=== PATIENT | male | born 1980 | race Caucasian/White ===

== ENCOUNTER 2017-01-03 08:00 | Observation (INO) | payer OTHER ==
[2017-01-03] VITALS (11 sets, daily range): BP systolic 115–176; BP diastolic 62–104; PULSE 65–87; RESP 16–18; TEMP 97.7–98.4; O2SAT 96–99
[~2017-01-03] VITALS: Ht 170.2 cm; Wt 72.5 kg
[2017-01-03] MEDS ORDERED: SODIUM CHLOR 0.9% 1000 ML INJ 1,000 ML IV SCH (08:12)
[2017-01-03] MEDS ORDERED: SODIUM CHLORIDE 0.9% FLUSH 10 ML FLUSH IV FLUSH PRN ×2 (08:15→11:00)
[2017-01-03] MEDS ORDERED: FAMOTIDINE 20 MG/2 ML VIAL IV PUSH ONE (08:15)
[2017-01-03] MEDS ORDERED: diphenhydrAMINE HCL 50 MG/ML VIAL IVP ONE (08:15)
[2017-01-03] MEDS ORDERED: methylPREDNISolone SOD SUCC 125 MG/2 ML VIAL IV PUSH ONE (08:15)
[2017-01-03 08:36] LABS: AUTOMATED NEUTROPHIL # 4.8 TH/MM3 (1.8-7.7); BASOPHIL % 0.2 % (0.0-2.0); EOSINOPHIL # 0.8 TH/MM3 (0-0.4); EOSINOPHIL % 7.3 % (0.0-4.0); HEMATOCRIT 43.3 % (39.0-51.0); HEMO FLAGS DIFF FINAL; LYMPH % 35.2 % (9.0-44.0); LYMPHOCYTE # 3.7 TH/MM3 (1.0-4.8); MEAN CORPUSCULAR HEMOGLOBIN 30.9 PG (27.0-34.0); MEAN CORPUSCULAR HGB CONC 34.7 % (32.0-36.0); MONO % 11.3 % (0.0-8.0); PLATELET COUNT 255 TH/MM3 (150-450); RED BLOOD COUNT 4.86 MIL/MM3 (4.50-5.90); RED CELL DISTRIBUTION WIDTH 12.8 % (11.6-17.2); WHITE BLOOD COUNT 10.5 TH/MM3 (4.0-11.0)
[2017-01-03 08:51] LABS: BICARBONATE 27.4 MEQ/L (21.0-32.0)
[2017-01-03] MEDS ORDERED: PRED20 PO (09:09)
--- NOTE | 2017-01-03 09:09 | PD ---
HPI Chief Complaint: Allergic/Adverse Reaction Time Seen by Provider: 08:11 Travel History International Travel<30 days: No Contact w/Intl Traveler<30days: No Traveled to known affect area: No History of Present Illness HPI 36-year-old male states that this morning he suddenly developed itchiness all over with swelling to his hands and feet that felt like an allergic reaction. He denies any new exposure or bite that he can think of. This occurred shortly prior to arrival. He did not take any medications to help with the itching prior to arrival. He denies any other concurrent complaints. He denies any specific modifying factors. [facility] Past Medical History Inguinal Hernia: Yes Influenza Vaccination: No Past Surgical History Other Surgery: Yes (INGUINAL HERNIA SURGERY) Social History Alcohol Use: No Tobacco Use: No Substance Use: No (COCAINE 1+ YEAR AGO) Allergies-Medications (Allergen,Severity, Reaction): Coded Allergies: No Known Allergies (Unverified , 01/03/17) Reported Meds & Prescriptions Reported Meds & Active Scripts Active Review of Systems Except as stated in HPI: all other systems reviewed are Neg Physical Exam Narrative GENERAL: Well-nourished, well-developed patient. SKIN: Warm and dry. There is a what appears to be a small insect bite noted to the back of patient's neck that shows a little bit of surrounding erythema without induration, hive-like reaction noted to lower arms and legs HEAD: Normocephalic and atraumatic. EYES: No injection or drainage. ENT: No nasal drainage noted. No uvula swelling NECK: Supple, trachea midline. CARDIOVASCULAR: Regular rate and rhythm RESPIRATORY: Breath sounds equal bilaterally. No accessory muscle use. GASTROINTESTINAL: Abdomen soft, non-tender, nondistended. NEUROLOGICAL: Awake and alert. Motor and sensory grossly within normal limits. Normal speech. Data Data Last Documented VS Vital Signs Date Time Temp Pulse Resp B/P (MAP) Pulse Ox O2 Delivery O2 Flow Rate FiO2 01/03/17 10:54 73 16 123/71 (88) 97 Room Air 01/03/17 08:01 98.4 Orders Orders Basic Metabolic Panel (Bmp) (01/03/17 08:12) Complete Blood Count With Diff (01/03/17 08:12) Ecg Monitoring (01/03/17 08:12) Iv Access Insert/Monitor (01/03/17 08:12) Oximetry (01/03/17 08:12) Diphenhydramine Inj (Benadryl Inj) (01/03/17 08:15) Methylprednisolone So Succ Inj (Solumedr (01/03/17 08:15) Famotidine Inj (Pepcid Inj) (01/03/17 08:15) Sodium Chlor 0.9% 1000 Ml Inj (Ns 1000 M (01/03/17 08:12) Sodium Chloride 0.9% Flush (Ns Flush) (01/03/17 08:15) Epinephrine (1:1000) Inj (Adrenalin (1:1 (01/03/17 09:15) Admit Order (Ed Use Only) (01/03/17 10:52) Labs Laboratory Tests Test 01/03/17 08:20 White Blood Count 10.5 TH/MM3 Red Blood Count 4.86 MIL/MM3 Hemoglobin 15.0 GM/DL Hematocrit 43.3 % Mean Corpuscular Volume 89.0 FL Mean Corpuscular Hemoglobin 30.9 PG Mean Corpuscular Hemoglobin Concent 34.7 % Red Cell Distribution Width 12.8 % Platelet Count 255 TH/MM3 Mean Platelet Volume 8.8 FL Neutrophils (%) (Auto) 46.0 % Lymphocytes (%) (Auto) 35.2 % Monocytes (%) (Auto) 11.3 % Eosinophils (%) (Auto) 7.3 % Basophils (%) (Auto) 0.2 % Neutrophils # (Auto) 4.8 TH/MM3 Lymphocytes # (Auto) 3.7 TH/MM3 Monocytes # (Auto) 1.2 TH/MM3 Eosinophils # (Auto) 0.8 TH/MM3 Basophils # (Auto) 0.0 TH/MM3 CBC Comment DIFF FINAL Differential Comment Blood Urea Nitrogen 15 MG/DL Creatinine 0.86 MG/DL Random Glucose 105 MG/DL Calcium Level 8.7 MG/DL Sodium Level 140 MEQ/L Potassium Level 4.0 MEQ/L Chloride Level 105 MEQ/L Carbon Dioxide Level 27.4 MEQ/L Anion Gap 8 MEQ/L Estimat Glomerular Filtration Rate 101 ML/MIN [facility] Medical Decision Making Medical Screen Exam Complete: Yes Emergency Medical Condition: Yes Medical Record Reviewed: Yes (past history confirmed) Interpretation(s) CBC & BMP Diagram 01/03/17 08:20 Calcium Level 8.7 Differential Diagnosis Allergic reaction, insect bite, nonspecific rash Narrative Course Will check blood work and dose with Solu-Medrol, Benadryl, Pepcid and IV fluids and reevaluate On recheck patient is feeling better, will continue to observe at 915 patient states he has itching to his throat and is having difficulty talking, on exam patient has uvula edema will dose with epinephrine and monitor On recheck at 10:30 patient has improved uvula edema but it is still present, given delayed onset after patient was here and area of edema and concern for possible secondary delayed reaction he agrees to observation in the hospital Physician Communication Physician Communication dr hall agrees to admit Diagnosis Primary Impression: Allergic reaction Qualified Codes: T78.40XA - Allergy, unspecified, initial encounter Additional Impression: Insect bite Qualified Codes: W57.XXXA - Bitten or stung by nonvenomous insect and other nonvenomous arthropods, initial encounter Admitting Information Admitting Physician Requests: Observation Madison Lerner MD Jan 03, 2017 09:09
[2017-01-03] MEDS ORDERED: EPINEPHrine HCL (1:1000) 1 MG/ML VIAL IM ONE (09:15)
[2017-01-03] MEDS ORDERED: cloNIDine HCL 0.1 MG TAB PO PRN (11:00)
[2017-01-03] MEDS ORDERED: MORPHINE SULFATE 4 MG/ML INJ IV PUSH PRN ×2 (11:00)
[2017-01-03] MEDS ORDERED: SENNOSIDES 8.6 MG TAB PO PRN (11:00)
[2017-01-03] MEDS ORDERED: BISACODYL 10 MG SUPP RECTAL PRN (11:00)
[2017-01-03] MEDS ORDERED: LACTULOSE SYRUP 20 GM/30 ML CUP PO PRN (11:00)
[2017-01-03] MEDS ORDERED: MAGNESIUM HYDROXIDE SUSP 30 ML CUP PO PRN (11:00)
[2017-01-03] MEDS ORDERED: ACETAMINOPHEN 325 MG TAB PO PRN ×2 (11:00)
[2017-01-03] MEDS ORDERED: ONDANSETRON HCL 4 MG/2 ML VIAL IVP PRN (11:00)
[2017-01-03] MEDS ORDERED: diphenhydrAMINE HCL 25 MG CAP PO PRN (11:00)
[2017-01-03] MEDS ORDERED: diphenhydrAMINE HCL 50 MG/ML VIAL IV PUSH PRN (11:00)
[2017-01-03] MEDS ORDERED: oxyCODONE/ACETAMINOPHEN 5 MG/325 MG TAB PO PRN (11:00)
[2017-01-03] MEDS ORDERED: oxyCODONE/ACETAMINOPHEN 10 MG/325 MG TAB PO PRN (11:00)
[2017-01-03] MEDS ORDERED: PROCHLORPERAZINE 25 MG SUPP RECTAL PRN (11:00)
[2017-01-03] MEDS ORDERED: NALOXONE HCL 0.4 MG/ML AMP IV PUSH PRN (11:00)
--- NOTE | 2017-01-03 11:21 | HHI.HP ---
[facility] Primary Care Physician Admission Diagnosis allergic reaction Diagnoses: Chief Complaint: Allergic/adverse reaction Travel History International Travel<30 Days: No Contact w/Intl Traveler <30 Da: No Traveled to Known Affected Are: No History of Present Illness Patient is a 36-year-old male with no past medical history that states this morning he suddenly developed itchiness all over with swelling in his hands and feet and felt like an allergic reaction. He denies any known exposures or bites that he can think of. He may have been bit on the back of his neck. This occurred shortly prior to arrival. He did not take any medications to help with the itching prior to arrival. He denies any other concurrent complaints. Denies any other specific modifying factors. In the emergency room has been given epinephrine Solu-Medrol and Benadryl Review of Systems Constitutional: DENIES: Diaphoretic episodes, Fatigue, Fever, Weight gain, Weight loss, Chills, Dizziness, Change in appetite Endocrine: DENIES: Heat/cold intolerance, Polydipsia, Polyuria, Polyphagia Eyes: DENIES: Blurred vision, Diplopia, Eye inflammation, Eye pain Ears, nose, mouth, throat: DENIES: Tinnitus, Hearing loss, Vertigo, Nasal discharge, Oral lesions, Throat pain, Hoarseness, Ear Pain, Running Nose, Epistaxis Respiratory: DENIES: Apneas, Cough, Snoring, Wheezing, Hemoptysis Cardiovascular: DENIES: Chest pain, Palpitations, Syncope Gastrointestinal: DENIES: Abdominal pain, Black stools, Bloody stools Musculoskeletal: DENIES: Joint pain, Muscle aches, Stiffness Integumentary: DENIES: Abnormal pigmentation, Nail changes Hematologic/lymphatic: DENIES: Bruising, Lymphadenopathy Immunologic/allergic: DENIES: Eczema, Urticaria Neurologic: DENIES: Abnormal gait, Headache, Localized weakness, Paresthesias Psychiatric: DENIES: Anxiety, Confusion, Mood changes Except as stated in HPI: all other systems reviewed are Neg Past Family Social History Past Medical History Hernia repair Past Surgical History Hernia repair Reported Medications Reported Meds & Active Scripts Active Denies any Allergies: Coded Allergies: No Known Allergies (Unverified , 01/03/17) Active Ordered Medications Current Medications Diphenhydramine HCl (Benadryl Inj) 25 mg ONCE ONCE IVP Last administered on 08:19; Start 01/03/17 at 08:15; Stop 01/03/17 at 08:16; Status DC Methylprednisolone Sodium Succinate (SoluMEDROL INJ) 125 mg ONCE ONCE IV PUSH Last administered on 01/03/17 08:18; Start 01/03/17 at 08:15; Stop 01/03/17 at 08:16; Status DC Famotidine (Pepcid Inj) 20 mg ONCE ONCE IV PUSH Last administered on 08:18; Start 01/03/17 at 08:15; Stop 01/03/17 at 08:16; Status DC Sodium Chloride 1,000 ml @ 1,000 mls/hr Q1H IV Last administered on 08:17; Start 01/03/17 at 08:12; Stop 01/03/17 at 09:11; Status DC Sodium Chloride (NS Flush) 2 ml UNSCH PRN IV FLUSH FLUSH AFTER USING IV ACCESS ; Start 01/03/17 at 08:15 Epinephrine HCl (Adrenalin (1:1000) Inj) 0.3 mg ONCE ONCE IM Last administered on 01/03/17 09:24; Start 01/03/17 at 09:15; Stop 01/03/17 at 09 :16; Status DC Clonidine (Catapres) 0.1 mg Q4H PRN PO SBP>160, DBP>90; Start 01/03/17 at 11: 00; Status UNV Diphenhydramine HCl (Benadryl) 25 mg Q4H PRN PO ITCHING; Start 01/03/17 at 11: 00; Status UNV Diphenhydramine HCl (Benadryl Inj) 25 mg Q6HR PRN IV PUSH itching allergy; Start 01/03/17 at 11:00; Status UNV Loratadine (Claritin) 10 mg DAILY PO ; Start 01/03/17 at 11:00; Status UNV Methylprednisolone Sodium Succinate (SoluMEDROL INJ) 60 mg Q6HR IV PUSH ; Start 01/03/17 at 12:00; Status UNV Epinephrine HCl (Adrenalin (1:1000) Inj) 0.3 mg Q20M PRN SQ ALLERGIC REACTION; Start 01/03/17 at 11:00; Status UNV Sodium Chloride 1,000 ml @ 100 mls/hr Q10H IV ; Start 01/03/17 at 10:59; Status UNV Sodium Chloride (NS Flush) 2 ml UNSCH PRN IV FLUSH FLUSH AFTER USING IV ACCESS ; Start 01/03/17 at 11:00; Status UNV Sodium Chloride (NS Flush) 2 ml BID IV FLUSH ; Start 01/03/17 at 21:00; Status UNV Acetaminophen (Tylenol) 650 mg Q4H PRN PO TEMP > 100.4; Start 01/03/17 at 11: 00; Status UNV Ondansetron HCl (Zofran Inj) 4 mg Q6H PRN IVP NAUSEA OR VOMITING; Start at 11:00; Status UNV Prochlorperazine (Compazine Supp) 25 mg Q12H PRN AR NAUSEA OR VOMITING; Start 01/03/17 at 11:00; Status UNV Enoxaparin Sodium (Lovenox Inj) 40 mg Q24H SQ ; Start 01/03/17 at 11:00; Status UNV Acetaminophen (Tylenol) 650 mg Q6H PRN PO PAIN SCALE 1 TO 2; Start 01/03/17 at 11:00; Status UNV Oxycodone/ Acetaminophen (Percocet 5-325 Mg) 1 tab Q6H PRN PO PAIN SCALE 3 TO 5; Start 01/03/17 at 11:00; Status UNV Oxycodone/ Acetaminophen (Percocet 10-325 Mg) 1 tab Q6H PRN PO PAIN SCALE 6 TO 10; Start 01/03/17 at 11:00; Status UNV Morphine Sulfate (Morphine Inj) 2 mg Q3H PRN IV PUSH Pain 3-5; if unable to take PO; Start 01/03/17 at 11:00; Status UNV Morphine Sulfate (Morphine Inj) 4 mg Q3H PRN IV PUSH Pain 6-10;if unable to take PO; Start 01/03/17 at 11:00; Status UNV Naloxone HCl (Narcan Inj) 0.4 mg UNSCH PRN IV PUSH SEE LABEL COMMENTS; Start 01/03/17 at 11:00; Status UNV Senna/Docusate Sodium (Chica-Colace) 1 tab BID PO ; Start 01/03/17 at 21:00; Status UNV Magnesium Hydroxide (Milk Of Magnesia Liq) 30 ml Q12H PRN PO Mild constipation ; Start 01/03/17 at 11:00; Status UNV Sennosides (Senokot) 17.2 mg Q12H PRN PO Moderate constipation; Start at 11:00; Status UNV Bisacodyl (Dulcolax Supp) 10 mg DAILY PRN RECTAL SEVERE CONSITIPATION; Start 01/03/17 at 11:00; Status UNV Lactulose (Lactulose Liq) 30 ml DAILY PRN PO SEVERE CONSITIPATION; Start 01/03 at 11:00; Status UNV Family History Parents are healthy. His grandfather had diabetes Social History Works in construction Denies any alcohol denies any tobacco Has not used cocaine very long time Physical Exam Vital Signs Vital Signs Date Time Temp Pulse Resp B/P (MAP) Pulse Ox O2 Delivery O2 Flow Rate FiO2 01/03/17 10:54 73 16 123/71 (88) 97 Room Air 01/03/17 10:13 69 16 139/68 (91) 96 Room Air 01/03/17 09:24 78 139/81 01/03/17 09:15 70 16 139/81 (100) 98 Room Air 01/03/17 08:11 86 16 176/104 (128) 97 Room Air 01/03/17 08:01 98.4 87 18 160/91 (114) 99 Room Air Physical Exam GENERAL: This is a well-nourished, well-developed patient, in no apparent distress. SKIN: No rashes, ecchymoses or lesions. Cool and dry. HEAD: Atraumatic. Normocephalic. No temporal or scalp tenderness. EYES: Pupils equal round and reactive. Extraocular motions intact. No scleral icterus. No injection or drainage. ENT: Nose without bleeding, purulent drainage or septal hematoma. Throat without erythema, tonsillar hypertrophy or exudate. Uvula midline. Airway patent. Less swelling appreciated tongue is midline NECK: Trachea midline. No JVD or lymphadenopathy. Supple, nontender, no meningeal signs. CARDIOVASCULAR: Regular rate and rhythm without murmurs, gallops, or rubs. S1 and S2 no S3 or S4 RESPIRATORY: Clear to auscultation. Breath sounds equal bilaterally. No wheezes , rales, or rhonchi. GASTROINTESTINAL: Abdomen soft, non-tender, nondistended. No hepato-splenomegaly , or palpable masses. No guarding. MUSCULOSKELETAL: Extremities without clubbing, cyanosis, or edema. No joint tenderness, effusion, or edema noted. No calf tenderness. Negative Homans sign bilaterally. NEUROLOGICAL: Awake and alert. Cranial nerves II through XII intact. Motor and sensory grossly within normal limits. Five out of 5 muscle strength in all muscle groups. Normal speech. Insight and judgment is good Mood and Behaviors are appropriate Laboratory Laboratory Tests Test 01/03/17 08:20 White Blood Count 10.5 Red Blood Count 4.86 Hemoglobin 15.0 Hematocrit 43.3 Mean Corpuscular Volume 89.0 Mean Corpuscular Hemoglobin 30.9 Mean Corpuscular Hemoglobin Concent 34.7 Red Cell Distribution Width 12.8 Platelet Count 255 Mean Platelet Volume 8.8 Neutrophils (%) (Auto) 46.0 Lymphocytes (%) (Auto) 35.2 Monocytes (%) (Auto) 11.3 Eosinophils (%) (Auto) 7.3 Basophils (%) (Auto) 0.2 Neutrophils # (Auto) 4.8 Lymphocytes # (Auto) 3.7 Monocytes # (Auto) 1.2 Eosinophils # (Auto) 0.8 Basophils # (Auto) 0.0 CBC Comment DIFF FINAL Differential Comment Blood Urea Nitrogen 15 Creatinine 0.86 Random Glucose 105 Calcium Level 8.7 Sodium Level 140 Potassium Level 4.0 Chloride Level 105 Carbon Dioxide Level 27.4 Anion Gap 8 Estimat Glomerular Filtration Rate 101 Result Diagram: 01/03/1781901/03/17819 Caprini VTE Risk Assessment Caprini VTE Risk Assessment: No/Low Risk (score <= 1) Caprini Risk Assessment Model Point Value = 1 Point Value = 2 Point Value = 3 Point Value = 5 Age 41-60 Minor surgery BMI > 25 kg/m2 Swollen legs Varicose veins or History of unexplained or recurrent spontaneous Oral contraceptives or hormone replacement Sepsis (< 1 month) Serious lung disease, including pneumonia (< 1 month) Abnormal pulmonary function Acute myocardial infarction Congestive heart failure (< 1 month) History of inflammatory bowel disease Medical patient at bed rest Age 61-74 Arthroscopic surgery Major open surgery (> 45 min) Laparoscopic surgery (> 45 min) Malignancy Confined to bed (> 72 hours) Immobilizing plaster cast Central venous access Age >= 75 History of VTE Family history of VTE Factor V Leiden Prothrombin [id number] Lupus anticoagulant Anticardiolipin antibodies Elevated serum homocysteine Heparin-induced thrombocytopenia Other congenital or acquired thrombophilia Stroke (< 1 month) Elective arthroplasty Hip, pelvis, or leg fracture Acute spinal cord injury (< 1 month) Prophylaxis Regimen Total Risk Factor Score Risk Level Prophylaxis Regimen 0-1 Low Early ambulation 2 Moderate Order ONE of the following: *Sequential Compression Device (SCD) *Heparin 5000 units SQ BID 3-4 Higher Order ONE of the following medications: *Heparin 5000 units SQ TID *Enoxaparin/Lovenox 40 mg SQ daily (WT < 150 kg, CrCl > 30 mL/min) *Enoxaparin/Lovenox 30 mg SQ daily (WT < 150 kg, CrCl > 10-29 mL/min) *Enoxaparin/Lovenox 30 mg SQ BID (WT < 150 kg, CrCl > 30 mL/min) AND/OR *Sequential Compression Device (SCD) 5 or more Highest Order ONE of the following medications: *Heparin 5000 units SQ TID (Preferred with Epidurals) *Enoxaparin/Lovenox 40 mg SQ daily (WT < 150 kg, CrCl > 30 mL/min) *Enoxaparin/Lovenox 30 mg SQ daily (WT < 150 kg, CrCl > 10-29 mL/min) *Enoxaparin/Lovenox 30 mg SQ BID (WT < 150 kg, CrCl > 30 mL/min) AND *Sequential Compression Device (SCD) Assessment and Plan Problem List: (1) Allergic reaction ICD Code: T78.40XA - Allergy, unspecified, initial encounter Status: Acute (2) Insect bite ICD Code: W57.XXXA - Bitten or stung by nonvenomous insect and other nonvenomous arthropods, initial encounter Status: Acute Assessment and Plan Allergic reaction unspecified possibly due to a insect bite We'll monitor. Continue on Solu-Medrol Benadryl and Pepcid and Claritin Patient being admitted to observation for secondary allergic reaction We'll make sure he has all medications available and epinephrine as needed Labs currently are stable AM LABS Code Status FULL CODE Discussed Condition With DW PATIENT AND RN AND ER PHYSICIAN Problem Qualifiers (1) Allergic reaction: Qualified Codes: T78.40XA - Allergy, unspecified, initial encounter (2) Insect bite: Qualified Codes: W57.XXXA - Bitten or stung by nonvenomous insect and other nonvenomous arthropods, initial encounter Benjamin Varma DO Jan 03, 2017 11:21
[2017-01-03] MEDS ORDERED: EPINEPHrine HCL (1:1000) 1 MG/ML VIAL IM PRN (12:00)
[2017-01-03] MEDS: LORATADINE 10 MG TAB PO SCH (12:29)
[2017-01-03] MEDS: ENOXAPARIN SODIUM 40 MG/0.4 ML SYRINGE SQ SCH (12:29)
[2017-01-03] MEDS: SODIUM CHLOR 0.9% 1000 ML INJ 1,000 ML IV SCH ×2 (12:29→21:02)
[2017-01-03] MEDS: methylPREDNISolone SOD SUCC 125 MG/2 ML VIAL IV PUSH SCH ×2 (14:30→20:00)
[2017-01-03 15:45] LABS: CREATINE KINASE 195 U/L (39-308)
[2017-01-03] MEDS: FAMOTIDINE 20 MG/2 ML VIAL IV PUSH SCH (20:00)
[2017-01-03] MEDS: SODIUM CHLORIDE 0.9% FLUSH 10 ML FLUSH IV FLUSH SCH (20:28)
[2017-01-03] MEDS: DOCUSATE SODIUM 50 MG/SENNA 8.6 MG TAB PO SCH (20:29)
[2017-01-03 22:02] LABS: CREATINE KINASE 162 U/L (39-308)
[2017-01-04 00:05] VITALS: PULSE 68
[2017-01-04 00:06] VITALS: BP 116/65; PULSE 74; RESP 18; TEMP 97.8; O2SAT 97
[2017-01-04] MEDS: methylPREDNISolone SOD SUCC 125 MG/2 ML VIAL IV PUSH SCH ×3 (02:26→14:00)
[2017-01-04 03:58] VITALS: BP 115/67; PULSE 60; PULSE 73; RESP 18; TEMP 97.9; O2SAT 95
[2017-01-04 07:00] LABS: AUTOMATED NEUTROPHIL # 17.8 TH/MM3 (1.8-7.7); HEMATOCRIT 42.5 % (39.0-51.0); LYMPH % 6.1 % (9.0-44.0); LYMPHOCYTE # 1.2 TH/MM3 (1.0-4.8); MEAN CELL VOLUME 89.4 FL (80.0-100.0); MEAN CORPUSCULAR HGB CONC 33.6 % (32.0-36.0); NEUT % 91.9 % (16.0-70.0); PLATELET COUNT 243 TH/MM3 (150-450); RED BLOOD COUNT 4.75 MIL/MM3 (4.50-5.90); RED CELL DISTRIBUTION WIDTH 12.8 % (11.6-17.2); WHITE BLOOD COUNT 19.3 TH/MM3 (4.0-11.0)
[2017-01-04 07:12] LABS: ANION GAP 8 MEQ/L (5-15); AST (GOT) 14 U/L (15-37); BICARBONATE 27.6 MEQ/L (21.0-32.0); BLOOD UREA NITROGEN 10 MG/DL (7-18); CHLORIDE 105 MEQ/L (98-107); GLOMERULAR FILTRATION RATE 103 ML/MIN (>89); HEMO FLAGS AUTO DIFF; MAGNESIUM 2.1 MG/DL (1.5-2.5); POTASSIUM 3.7 MEQ/L (3.5-5.1); SODIUM (NA) 141 MEQ/L (136-145)
[2017-01-04 07:22] LABS: ALKALINE PHOSPHATASE 71 U/L (45-117); ALT (GPT) 26 U/L (12-78); FREE T4 0.82 NG/DL (0.76-1.46); TOTAL BILIRUBIN ADULT 0.3 MG/DL (0.2-1.0)
[2017-01-04 07:44] VITALS: BP 118/68; PULSE 71; RESP 18; TEMP 97.8; O2SAT 94
[2017-01-04] MEDS: DOCUSATE SODIUM 50 MG/SENNA 8.6 MG TAB PO SCH (09:00)
[2017-01-04] MEDS ORDERED: PNEUMOCOCCAL POLYVALENT INJ 25 MCG/0.5 ML SYR IM ONE (10:00)
[2017-01-04] MEDS ORDERED: INFLUENZA VIRUS VACCINE (QUADRIVALENT) 0.5 ML SYR IM ONE (10:00)
[2017-01-04] MEDS ORDERED: BENA25CA4 PO (10:43)
[2017-01-04] MEDS ORDERED: ZANT150T2 PO (10:43)
[2017-01-04] MEDS ORDERED: EPIP0.3I IM (10:43)
[2017-01-04] MEDS ORDERED: PRED10PA PO (10:43)
--- NOTE | 2017-01-04 10:44 | HHI.DCPOC ---
Discharge Care Plan Diagnosis: (1) Allergic reaction (2) Insect bite Your Health Problems Are: Inflammation Rash Goals to Promote Your Health * To prevent worsening of your condition and complications * To maintain your health at the optimal level Directions to Meet Your Goals Take your medications as prescribed Follow your dietary instruction Follow activity as directed Keep your appointments as scheduled Take your immunizations and boosters as scheduled If your symptoms worsen call your PCP, if no PCP go to Urgent Care Center or Emergency Room Smoking is Dangerous to Your Health. Avoid second hand smoke Call the 24-hour hour crisis hotline for domestic abuse at Stephany Rodriguez PA-C Jan 04, 2017 10:43 am
[2017-01-04] MEDS: SODIUM CHLOR 0.9% 1000 ML INJ 1,000 ML IV SCH (10:54)
[2017-01-04] MEDS: LORATADINE 10 MG TAB PO SCH (10:55)
[2017-01-04] MEDS: SODIUM CHLORIDE 0.9% FLUSH 10 ML FLUSH IV FLUSH SCH (10:55)
[2017-01-04] MEDS: FAMOTIDINE 20 MG/2 ML VIAL IV PUSH SCH (10:58)
[2017-01-04 11:59] VITALS: BP 119/60; PULSE 86; RESP 18; TEMP 97.9; O2SAT 96
[2017-01-04] MEDS: ENOXAPARIN SODIUM 40 MG/0.4 ML SYRINGE SQ SCH (12:00)
[2017-01-04 13:27] LABS: HEMOGLOBIN A1a 0.8 %; HEMOGLOBIN A1b 0.8 %; HEMOGLOBIN Ao 84.6 %; HEMOGLOBIN F 1.3 %; HEMOGLOBIN LA1C 2.4 %; HEMOGLOBIN P3 3.5 %
[2017-01-04] MEDS ORDERED: VIBR50SY PO (13:54)
[2017-01-04] MEDS ORDERED: CLIN1LOT TOPICAL (13:54)
--- NOTE | 2017-01-04 13:58 | HHI.PR ---
Subjective Remarks Patient wants to go home, skin on the neck looks better Discussed with him excoriations on his both arms he stated he has history MRSA that comes and goes Objective Vitals Vital Signs Date Time Temp Pulse Resp B/P (MAP) Pulse Ox O2 Delivery O2 Flow Rate FiO2 01/04/17 11:59 97.9 86 18 119/60 (79) 96 01/04/17 07:44 97.8 71 18 118/68 (85) 94 01/04/17 03:58 97.9 73 18 115/67 (83) 95 01/04/17 03:58 60 01/04/17 00:06 97.8 74 18 116/65 (82) 97 01/04/17 00:05 68 01/03/17 22:39 97 01/03/17 20:01 76 01/03/17 19:46 97.8 79 18 121/63 (82) 97 01/03/17 16:05 98.0 70 18 115/62 (79) 96 01/03/17 15:15 65 I/O 01/03/17 01/03/17 01/03/17 01/04/17 01/04/17 01/04/17 07:00 15:00 23:00 07:00 15:00 23:00 Intake Total 1000 ml 480 ml Balance 1000 ml 480 ml Intake Oral 480 ml IV Total 1000 ml # Voids 1 Result Diagram: 01/04/1762101/04/17621 Objective Remarks GENERAL: This is a well-nourished, well-developed patient, in no apparent distress. SKIN: EXCORIATIONS on bilateral arms dry HEAD: Atraumatic. Normocephalic. EYES: Pupils equal round and reactive. Extraocular motions intact. No scleral icterus. ENT: Nose without bleeding, or drainage, Airway patent. NECK: Trachea midline. Supple CARDIOVASCULAR: Regular rate and rhythm without murmurs, gallops, or rubs. RESPIRATORY: Fair air entry bilaterally. No wheezes, rales, or rhonchi. GASTROINTESTINAL: Abdomen soft, non-tender, nondistended. Positive bowel sounds MUSCULOSKELETAL: Extremities without clubbing, cyanosis, or edema. Pedal pulses appreciated NEUROLOGICAL: Awake and alert. Moves all extremity. Normal speech.no focal neurological deficit A/P Problem List: (1) Allergic reaction ICD Code: T78.40XA - Allergy, unspecified, initial encounter Status: Acute (2) Insect bite ICD Code: W57.XXXA - Bitten or stung by nonvenomous insect and other nonvenomous arthropods, initial encounter Status: Acute Assessment and Plan Allergic reaction unspecified possibly due to a insect bite Improved on Solu-Medrol Benadryl and Pepcid, stop Claritin Will discharge on Taper prednisone and Benadryl and Pepcid Multiple skin excoriation on the bilateral arms with history of MRSA infection Will discharge on 7 days of doxycycline and clindamycin topical Discharge patient to home Condition on discharge: Improved Regular Diet as tolerated Ad Deann activity Rx written: As above Follow-up with primary care physician Problem Qualifiers (1) Allergic reaction: Qualified Codes: T78.40XA - Allergy, unspecified, initial encounter (2) Insect bite: Qualified Codes: W57.XXXA - Bitten or stung by nonvenomous insect and other nonvenomous arthropods, initial encounter Wilson Quintanilla MD Jan 04, 2017 13:58
[2017-01-04 14:35] VITALS: O2SAT 96
== END 2017-01-04 14:39 | disposition home or self-care (01) ==
LOC: NEPE 08:00 → NEDA 10:54 → NEPFCDU 11:38
PROVIDERS: ADMIT Hospitalist; ATTEND Hospitalist
DX: T78.40XA Allergy, unspecified, initial encounter (principal); L29.9 Pruritus, unspecified; R60.0 Localized edema; Z86.14 Personal history of Methicillin resistant Staphylococcus aureus infection; W57.XXXA Bitten or stung by nonvenomous insect and other nonvenomous arthropods, initial encounter; Z23 Encounter for immunization
CPT/HCPCS: 80048; 80053; 82550; 83036; 83735; 84100; 84439; 84443; 84484; 85025; 90686; 90732; 96361; 96372; 96374; 96375; 96376; 99285; G0378; J0171; J1200; J1650; J2930; J7030; Q2038